=== PATIENT | female | born 1945 | race Caucasian/White ===

== ENCOUNTER 2018-03-04 21:57 | Inpatient (IN) | payer MEDICARE, OTHER ==
[~2018-03-04] VITALS: Ht 160 cm; Wt 90.9 kg
[~2018-03-04 21:57] MED LIST: ALEN35TA18 PO; APIX5TAB OR; BENA20TA14 PO; CALC600T10 OR; CAR3125T OR; CHOL400D PO; DIVA500T53 PO; FER325T PO; FEXO-47 PO; FLUC100T34 PO; LAM100T OR; LEV50T PO; MAGN500C PO; OMEP20CA74 PO; PIOG45TA8 PO; PROBCAP OR; SIMV-8 PO; [UNRECOGNIZED DRUG - CODE] PO
[2018-03-04] MEDS ORDERED: D5W 5% IV ONE (23:00)
[2018-03-04] MEDS ORDERED: ACETYLCYSTEINE IV ONE (23:00)
[2018-03-04] MEDS ORDERED: SODIUM CHLORIDE 0.9% 1,000 ML IV ONE (23:15)
[2018-03-04 23:46] LABS: Basophils # (auto) 0 uL; Basophils % (auto) 0.7 % (0.0-2.0); Eosinophils # (auto) 0 uL; Eosinophils % (auto) 0.3 % (0.0-7.0); Hematocrit 35.9 % (36.0-46.0); Hemoglobin 11.8 g/dL (12.2-16.2); Lymphocytes # (auto) 1.2 uL; Lymphocytes % (auto) 17.8 % (10.0-50.0); Mean Corpuscular Hgb Conc. 32.7 g/dL (32.0-36.0); Mean Corpuscular Volume 91.5 fL (80.0-100.0); Monocytes # (auto) 0.3 uL; Monocytes % (auto) 4.1 % (0.0-12.0); Neutrophils % (auto) 77.1 % (37.0-80.0); Nucleated Red Blood Cells % 0.1 %; Platelet Count (auto) 272 10^3/uL (140-450); Red Blood Cells 3.93 10^6/uL (4.0-5.20); Red Cell Distribution Width 15.4 % (11.8-14.3); White Blood Cell 6.5 10^3/uL (4.4-10.8)
[2018-03-05] MEDS ORDERED: ACETYLCYSTEINE IV ONE ×2
[2018-03-05] MEDS ORDERED: D5W 5% IV ONE ×2
[2018-03-05 00:10] LABS: Acetaminophen 100.2 ug/mL (10-30)
[2018-03-05 00:43] LABS: Alanine Aminotransferase 20 U/L (13-56); Anion Gap 18 (5-15); Aspartate Aminotransferase 18 U/L (15-37); BUN/Creatinine Ratio 20.1; Blood Alcohol < 3.0 mg/dL (0-5); Blood Urea Nitrogen 38 mg/dL (7-18); Calcium 8.4 mg/dL (8.5-10.1); Carbon Dioxide 17 mmol/L (21-32); Chloride 102 mmol/L (98-107); GFR African American 34 mL/min; GFR Non-African American 28 mL/min; Glucose 206 mg/dL (74-106); Sodium 137 mmol/L (136-145)
[2018-03-05 00:46] LABS: Alkaline Phosphatase 61 U/L (45-117); Bilirubin, Total 0.6 mg/dL (0.2-1.0); Total Protein 7.5 g/dL (6.4-8.2)
[2018-03-05 01:52] LABS: Alcohol, Urine < 3.0 mg/dL (0-5); Amphetamine Screen, Urine NEGATIVE (NEGATIVE); Barbiturate Scree,Urine NEGATIVE (NEGATIVE); Benzodiazephine Screen, Urine POSITIVE (NEGATIVE); Cannabinoid Screen, Urine NEGATIVE (NEGATIVE); Cocaine Screen, Urine NEGATIVE (NEGATIVE); Opiate Scree,Urine NEGATIVE (NEGATIVE); Phencyclidine Screen, Urine NEGATIVE (NEGATIVE)
[2018-03-05] MEDS ORDERED: ONDANSETRON HCL 4 MG/2 ML VIAL IV ONE (04:30)
[2018-03-05] MEDS ORDERED: PANTOPRAZOLE 40 MG/10 ML VIAL IV ONE (04:30)
[2018-03-05] MEDS ORDERED: cloNIDine HCL 0.1 MG TAB PO ONE (04:30)
[2018-03-05] MEDS ORDERED: FAMOTIDINE (10MG/ML) 2ML VL IV ONE (04:30)
[2018-03-05] MEDS ORDERED: ACETYLCYSTEINE 20%(200MG/ML) SOLN 30ML PO SCH (06:00)
[2018-03-05] MEDS ORDERED: MORPHINE SULFATE 8mg/ml INJ SDV IV PRN (07:00)
[2018-03-05] MEDS ORDERED: PROMETHAZINE HCL 25 MG/ML 1ML IV PRN (07:00)
[2018-03-05] MEDS ORDERED: LACTULOSE 20Gm/30ML SOLN PO PRN (07:00)
[2018-03-05] MEDS ORDERED: LORazepam 0.5 MG TAB PO PRN (07:00)
[2018-03-05] MEDS ORDERED: MORPHINE SULF(PF) 0.5MG/ML 10ML VIAL IV PRN (07:00)
[2018-03-05] MEDS ORDERED: NITROGLYCERIN 0.4 MG SL TAB SL PRN (07:00)
[2018-03-05] MEDS ORDERED: HYDROmorphone HCL 2 MG/ML VL IV PRN ×2 (07:00)
[2018-03-05] MEDS ORDERED: DEXTROSE (50%) 50ML SYRG IV PRN (07:00)
[2018-03-05] MEDS: ACCU-CHEK COMFORT CURVE STRIP VI SCH ×4 (07:47→22:16)
[2018-03-05] MEDS: InsuLIN REG 1unit/0.01ml Soln (100units/ml) SC SCH ×4 (07:53→22:35)
[2018-03-05] MEDS: D5W 5% IV SCH ×2 (07:53→20:00)
[2018-03-05] MEDS: ACETYLCYSTEINE IV SCH ×2 (07:53→20:00)
[2018-03-05] MEDS: SODIUM CHLORIDE 0.9% 1,000 ML IV SCH ×2 (07:58→17:16)
[2018-03-05 08:05] LABS: Calcium 7.9 mg/dL (8.5-10.1)
[2018-03-05 08:08] LABS: BUN/Creatinine Ratio 18.7
[2018-03-05 08:11] LABS: Acetaminophen 18.3 ug/mL (10-30); Salicylate < 1.7 mg/dL (2.8-20.0)
[2018-03-05 09:31] LABS: INR 1.26 (0.9-1.15); Partial Thromboplastin Time 31.8 sec (23.78-33.04); Prothrombin Time 13.3 sec (9.27-12.13)
[2018-03-05] MEDS ORDERED: PATIENTS OWN MEDICATION (Benazepril Hcl 1 TAB) PO SCH (10:00)
[2018-03-05] MEDS ORDERED: PATIENTS OWN MEDICATION (Divalproex Sodium (Depakote) 1 TAB) PO SCH (10:00)
[2018-03-05] MEDS: FERROUS SULFATE 325 MG TAB PO SCH ×2 (10:22→22:14)
[2018-03-05] MEDS: LEVOTHYROXINE SODIUM 50 MCG TAB PO SCH (10:23)
[2018-03-05] MEDS: APIXABAN 5 MG TAB PO SCH ×2 (10:23→22:15)
[2018-03-05] MEDS: lamoTRIgine 100 MG TAB PO SCH (10:23)
[2018-03-05] MEDS: BENAZEPRIL HCL 10 MG TAB PO SCH (10:23)
[2018-03-05 14:59] LABS: Urine Bacteria FEW /hpf (None Seen); Urine Blood 1+ /uL (Negative); Urine WBC 38 /hpf (0 - 5)
[2018-03-05 15:06] LABS: Alanine Aminotransferase 22 U/L (13-56); Albumin 2.2 g/dL (3.4-5.0); Aspartate Aminotransferase 16 U/L (15-37)
[2018-03-05 15:09] LABS: Alkaline Phosphatase 52 U/L (45-117); Bilirubin, Total 0.2 mg/dL (0.2-1.0); Total Protein 6.5 g/dL (6.4-8.2)
[2018-03-05 15:16] LABS: Bilirubin, Direct < 0.1 mg/dL (0-0.2)
[2018-03-05 19:46] LABS: Alanine Aminotransferase 22 U/L (13-56); Albumin 2.6 g/dL (3.4-5.0); Alkaline Phosphatase 57 U/L (45-117); Aspartate Aminotransferase 12 U/L (15-37); Bilirubin, Direct < 0.1 mg/dL (0-0.2); Bilirubin, Total 0.2 mg/dL (0.2-1.0)
[2018-03-05 20:00] VITALS: BP 127/85
[2018-03-05] MEDS: TEMAZEPAM 15 MG CAP PO PRN (22:15)
[2018-03-05] MEDS: ATORVASTATIN 20 MG TAB PO SCH (22:16)
[2018-03-06 00:32] VITALS: BP 127/85
[2018-03-06] MEDS: SODIUM CHLORIDE 0.9% 1,000 ML IV SCH ×3 (03:15→13:15)
[2018-03-06 05:00] VITALS: BP 123/56
[2018-03-06] MEDS: InsuLIN REG 1unit/0.01ml Soln (100units/ml) SC SCH ×4 (05:35→22:23)
[2018-03-06] MEDS: ACCU-CHEK COMFORT CURVE STRIP VI SCH ×4 (06:01→22:21)
[2018-03-06 08:00] VITALS: BP 149/106
[2018-03-06 08:16] LABS: Basophils # (auto) 0.1 uL; Basophils % (auto) 0.9 % (0.0-2.0); Eosinophils # (auto) 0.3 uL; Eosinophils % (auto) 3.5 % (0.0-7.0); Hematocrit 33.6 % (36.0-46.0); Hemoglobin 11.2 g/dL (12.2-16.2); Lymphocytes # (auto) 2.9 uL; Lymphocytes % (auto) 32.3 % (10.0-50.0); Mean Corpuscular Hemoglobin 30.1 pg (28.0-32.0); Mean Corpuscular Hgb Conc. 33.2 g/dL (32.0-36.0); Mean Corpuscular Volume 90.5 fL (80.0-100.0); Monocytes # (auto) 0.5 uL; Monocytes % (auto) 5.9 % (0.0-12.0); Neutrophils # (auto) 5.1 uL; Neutrophils % (auto) 57.4 % (37.0-80.0); Platelet Count (auto) 238 10^3/uL (140-450); Red Blood Cells 3.72 10^6/uL (4.0-5.20); Red Cell Distribution Width 15.5 % (11.8-14.3); White Blood Cell 8.9 10^3/uL (4.4-10.8)
[2018-03-06 08:29] LABS: INR 1.08 (0.9-1.15); Partial Thromboplastin Time 25.7 sec (23.78-33.04); Prothrombin Time 11.5 sec (9.27-12.13)
[2018-03-06 08:31] LABS: Potassium 3.8 mmol/L (3.5-5.1)
[2018-03-06 08:35] LABS: Albumin 2.1 g/dL (3.4-5.0); BUN/Creatinine Ratio 16.6
[2018-03-06 08:44] LABS: Bilirubin, Total 0.2 mg/dL (0.2-1.0); Total Protein 6.1 g/dL (6.4-8.2)
[2018-03-06 09:00] VITALS: BP 149/106
[2018-03-06] MEDS ORDERED: AMLO5TAB2 PO (09:30)
[2018-03-06] MEDS ORDERED: METO-158 PO (09:30)
[2018-03-06] MEDS ORDERED: LISI-646 PO (09:30)
[2018-03-06] MEDS: BENAZEPRIL HCL 10 MG TAB PO SCH (09:31)
[2018-03-06] MEDS: FERROUS SULFATE 325 MG TAB PO SCH ×2 (09:39→22:18)
[2018-03-06] MEDS: APIXABAN 5 MG TAB PO SCH ×2 (09:39→22:19)
[2018-03-06] MEDS: LEVOTHYROXINE SODIUM 50 MCG TAB PO SCH (09:40)
[2018-03-06] MEDS: PANTOPRAZOLE 40 MG TAB PO SCH (09:40)
[2018-03-06] MEDS: lamoTRIgine 100 MG TAB PO SCH (09:40)
[2018-03-06] MEDS ORDERED: cefTRIAXone 1GM/10ml IVPUSH 10 ML IV ONE (10:15)
[2018-03-06] MEDS: ACETYLCYSTEINE IV SCH (11:11)
[2018-03-06] MEDS: D5W 5% IV SCH (11:11)
[2018-03-06 12:12] VITALS: BP 146/57
[2018-03-06 13:10] LABS: Hematocrit 35.3 % (36.0-46.0); Hemoglobin 11.5 g/dL (12.2-16.2)
[2018-03-06 16:22] LABS: Hematocrit 35.1 % (36.0-46.0); Hemoglobin 11.5 g/dL (12.2-16.2)
[2018-03-06 17:00] VITALS: BP 150/59
[2018-03-06] MEDS: amLODIPine BESYLATE 5 MG TAB PO SCH (17:11)
[2018-03-06 21:58] LABS: Hematocrit 31.1 % (36.0-46.0); Hemoglobin 10.4 g/dL (12.2-16.2)
[2018-03-06] MEDS: TEMAZEPAM 15 MG CAP PO PRN (22:19)
[2018-03-06] MEDS: ATORVASTATIN 20 MG TAB PO SCH (22:19)
[2018-03-07] MEDS: ACCU-CHEK COMFORT CURVE STRIP VI SCH ×4 (06:05→21:10)
[2018-03-07] MEDS: InsuLIN REG 1unit/0.01ml Soln (100units/ml) SC SCH ×4 (06:05→21:11)
[2018-03-07 07:27] LABS: Basophils # (auto) 0.1 uL; Basophils % (auto) 1.3 % (0.0-2.0); Eosinophils # (auto) 0.4 uL; Eosinophils % (auto) 4.8 % (0.0-7.0); Hematocrit 31.4 % (36.0-46.0); Hemoglobin 10.5 g/dL (12.2-16.2); Lymphocytes # (auto) 2.4 uL; Lymphocytes % (auto) 28.5 % (10.0-50.0); Mean Corpuscular Hgb Conc. 33.4 g/dL (32.0-36.0); Mean Corpuscular Volume 89.9 fL (80.0-100.0); Monocytes # (auto) 0.6 uL; Monocytes % (auto) 7.6 % (0.0-12.0); Neutrophils # (auto) 4.8 uL; Neutrophils % (auto) 57.8 % (37.0-80.0); Platelet Count (auto) 212 10^3/uL (140-450); Red Cell Distribution Width 15.5 % (11.8-14.3); White Blood Cell 8.4 10^3/uL (4.4-10.8)
[2018-03-07 07:28] LABS: Alanine Aminotransferase 17 U/L (13-56); Albumin 2.3 g/dL (3.4-5.0); Anion Gap 11 (5-15); Aspartate Aminotransferase 12 U/L (15-37); BUN/Creatinine Ratio 16.6; Blood Urea Nitrogen 32 mg/dL (7-18); Calcium 7.9 mg/dL (8.5-10.1); Carbon Dioxide 20 mmol/L (21-32); Chloride 109 mmol/L (98-107); GFR African American 33 mL/min; GFR Non-African American 27 mL/min; Glucose 151 mg/dL (74-106); Potassium 4.1 mmol/L (3.5-5.1); Sodium 140 mmol/L (136-145)
[2018-03-07 07:31] LABS: Alkaline Phosphatase 45 U/L (45-117); Bilirubin, Total 0.1 mg/dL (0.2-1.0); Total Protein 5.9 g/dL (6.4-8.2)
[2018-03-07 09:00] VITALS: BP 148/62
[2018-03-07] MEDS ORDERED: cefTRIAXone 1GM/10ml IVPUSH 10 ML IV SCH (09:00)
[2018-03-07] MEDS: SODIUM CHLORIDE 0.9% 1,000 ML IV SCH (09:15)
[2018-03-07] MEDS: lamoTRIgine 100 MG TAB PO SCH (09:22)
[2018-03-07] MEDS: APIXABAN 5 MG TAB PO SCH ×2 (09:22→21:09)
[2018-03-07] MEDS: FERROUS SULFATE 325 MG TAB PO SCH ×2 (09:23→21:09)
[2018-03-07] MEDS: amLODIPine BESYLATE 5 MG TAB PO SCH (09:24)
[2018-03-07] MEDS: LEVOTHYROXINE SODIUM 50 MCG TAB PO SCH (09:24)
[2018-03-07] MEDS: PANTOPRAZOLE 40 MG TAB PO SCH (09:25)
[2018-03-07] MEDS ORDERED: FURO40TA4 PO (11:36)
[2018-03-07] MEDS ORDERED: SITA50TA PO (11:36)
[2018-03-07] MEDS ORDERED: METH500T6 PO (11:36)
[2018-03-07] MEDS ORDERED: APIX2.5T OR (11:36)
[2018-03-07] MEDS ORDERED: TEMA30CA PO (11:36)
[2018-03-07] MEDS ORDERED: HYDR200T36 PO (11:36)
[2018-03-07 13:00] VITALS: BP 125/76
[2018-03-07] MEDS: ATORVASTATIN 20 MG TAB PO SCH (21:09)
[2018-03-08 05:00] VITALS: BP 158/77
[2018-03-08] MEDS: ACCU-CHEK COMFORT CURVE STRIP VI SCH ×2 (05:53→11:23)
[2018-03-08] MEDS: InsuLIN REG 1unit/0.01ml Soln (100units/ml) SC SCH ×2 (05:55→12:00)
[2018-03-08 09:00] VITALS: BP 143/78
[2018-03-08] MEDS: FERROUS SULFATE 325 MG TAB PO SCH (10:00)
[2018-03-08] MEDS: PANTOPRAZOLE 40 MG TAB PO SCH (10:00)
[2018-03-08] MEDS: APIXABAN 5 MG TAB PO SCH (10:05)
[2018-03-08] MEDS: amLODIPine BESYLATE 5 MG TAB PO SCH (10:06)
[2018-03-08] MEDS: LEVOTHYROXINE SODIUM 50 MCG TAB PO SCH (10:07)
[2018-03-08 13:40] VITALS: BP 151/74
[2018-03-08] MEDS ORDERED: lamoTRIgine 100 MG TAB PO SCH (22:00)
== END 2018-03-08 14:50 | DRG 917 ==
LOC: EDBD 21:57 → ER 22:00 → TELE 22:01 → TELE-WESTW 03-05 19:55
PROVIDERS: ADMIT Internal Medicine; ATTEND Internal Medicine
DX: T42.4X2A Poisoning by benzodiazepines, intentional self-harm, initial encounter (principal); N17.0 Acute kidney failure with tubular necrosis; F32.1 Major depressive disorder, single episode, moderate; N39.0 Urinary tract infection, site not specified; E44.0 Moderate protein-calorie malnutrition; T39.1X2A Poisoning by 4-Aminophenol derivatives, intentional self-harm, initial encounter; T42.6X2A Poisoning by other antiepileptic and sedative-hypnotic drugs, intentional self-harm, initial encounter; E03.9 Hypothyroidism, unspecified; E11.21 Type 2 diabetes mellitus with diabetic nephropathy; E11.65 Type 2 diabetes mellitus with hyperglycemia; E66.9 Obesity, unspecified; E86.0 Dehydration; F41.9 Anxiety disorder, unspecified; T48.202A Poisoning by unspecified drugs acting on muscles, intentional self-harm, initial encounter; I10 Essential (primary) hypertension; T14.91XA Suicide attempt, initial encounter; N28.9 Disorder of kidney and ureter, unspecified; S61.512A Laceration without foreign body of left wrist, initial encounter; Z83.3 Family history of diabetes mellitus; Z85.038 Personal history of other malignant neoplasm of large intestine; Z86.711 Personal history of pulmonary embolism; Z86.718 Personal history of other venous thrombosis and embolism; Z90.5 Acquired absence of kidney; Z90.49 Acquired absence of other specified parts of digestive tract; Y92.89 Other specified places as the place of occurrence of the external cause; Z79.899 Other long term (current) drug therapy; Z79.4 Long term (current) use of insulin; Z98.41 Cataract extraction status, right eye; Z98.42 Cataract extraction status, left eye; X78.1XXA Intentional self-harm by knife, initial encounter; Y93.89 Activity, other specified
CPT/HCPCS: 36415; 36600; 51702; 71045; 80048; 80053; 80076; 80307; 80320; 80329; 81001; 82805; 82962; 83036; 85014; 85018; 85025; 85610; 85730; 87086; 93005; 96361; 96365; 96375; C9113; J1815; J2405; J3490; J7060